=== PATIENT | female | born 1990 | race African-American/Black ===

== ENCOUNTER 2017-12-07 17:26 | Emergency (ER) | payer OTHER ==
[~2017-12-07] VITALS: Ht 157.5 cm; Wt 70.0 kg
[~2017-12-07 17:26] MED LIST: ALBUTEROL; CLARITIN
[2017-12-07] MEDS ORDERED: KETOROLAC 60MG/2ML VIAL IM STA (18:38)
[2017-12-07 19:10] LABS: CLARITY URINE CLOUDY (CLEAR); COLOR URINE YELLOW (YELLOW); KETONES URINE TRACE (NEGATIVE); LEUKOCYTE ESTERASE URINE NEGATIVE (NEGATIVE); NITRITE URINE NEGATIVE (NEGATIVE); OCCULT BLOOD URINE NEGATIVE (NEGATIVE); PH URINE 6.5 (4.5-8.0); PROTEIN URINE NEGATIVE (NEGATIVE); SPECIFIC GRAVITY URINE 1.028 (1.005-1.030); UROBILINOGEN URINE 0.2 E.U./dL (0.2-1.0)
[2017-12-07 19:45] LABS: BASOPHILS % 0.7 % (0.0-2.0); EOSINOPHILS % 0.9 % (0.0-5.0); HEMATOCRIT. 38.1 % (36.0-48.0); HEMOGLOBIN. 12.9 g/dL (12.0-16.0); LYMPHOCYTES % 31.4 % (20.0-50.0); MEAN CORPUSCULAR HEMOGLOBIN 29.5 pg (28.0-32.0); MEAN CORPUSCULAR VOLUME 87.1 fL (81.0-99.0); MEAN PLATELET VOLUME 8.1 fl (7.4-10.4); MONOCYTES % 5.7 % (2.0-8.0); NEUTROPHILS % 61.3 % (40.0-76.0); PLATELET 328 x1000/uL (130-400); RED BLOOD CELL COUNT 4.37 mill/uL (4.2-5.4); RED CELL DISTRIBUTION WIDTH 12.7 % (11.6-14.6)
[2017-12-07 19:51] LABS: CHLORIDE 107 mEq/L (98-107)
[2017-12-07 21:10] VITALS: BP 182/83
== END 2017-12-07 22:25 | disposition home or self-care (01) ==
LOC: ER 17:26
DX: R10.30 Lower abdominal pain, unspecified (principal); R03.0 Elevated blood-pressure reading, without diagnosis of hypertension; J45.909 Unspecified asthma, uncomplicated; Z87.442 Personal history of urinary calculi
CPT/HCPCS: 36415; 74176; 80053; 81003; 81025; 85025; 96372; 99285; J1885

== ENCOUNTER 2018-06-28 23:22 | Emergency (ER) | payer OTHER ==
[~2018-06-28] VITALS: Ht 157.5 cm; Wt 62.0 kg
== END 2018-06-29 03:30 | disposition left against medical advice (07) ==
LOC: ER 23:22
DX: R10.9 Unspecified abdominal pain (principal); Z53.21 Procedure and treatment not carried out due to patient leaving prior to being seen by health care provider

== ENCOUNTER 2019-01-12 16:47 | Inpatient (IN) | payer OTHER ==
[~2019-01-12] VITALS: Ht 157.5 cm; Wt 60.3 kg
[2019-01-12] MEDS ORDERED: ONDANSETRON HCL 4MG/2ML INJ IV STA (21:50)
[2019-01-12] MEDS ORDERED: MAGNESIUM/ALUMINUM HYDROXIDE/SIMETHICONE 30ML UDC PO ONE (22:00)
[2019-01-12] MEDS ORDERED: VISCOUS LIDOCAINE 2% 15 ML UDC PO ONE (22:00)
[2019-01-12] MEDS ORDERED: ASPIRIN 81MG TABLET PO ONE (22:00)
[2019-01-12 22:48] LABS: BASOPHILS % 0.6 % (0.0-2.0); EOSINOPHILS % 1.8 % (0.0-5.0); HEMOGLOBIN. 13.1 g/dL (12.0-16.0); LYMPHOCYTES % 28.7 % (20.0-50.0); MEAN CORPUSCULAR HEMOGLOBIN 29.1 pg (28.0-32.0); MEAN CORPUSCULAR VOLUME 86.5 fL (81.0-99.0); MEAN PLATELET VOLUME 8.1 fl (7.4-10.4); MONOCYTES % 5.9 % (2.0-8.0); PLATELET 315 x1000/uL (130-400); RED BLOOD CELL COUNT 4.51 mill/uL (4.2-5.4); RED CELL DISTRIBUTION WIDTH 13.1 % (11.6-14.6)
[2019-01-12 22:55] LABS: INR 1.1; PARTIAL THROMBOPLASTIN TIME 33.2 sec (23.4-31.0)
[2019-01-12 23:04] LABS: CHLORIDE 108 mEq/L (98-107)
[2019-01-13] MEDS ORDERED: NITROGLYCERIN 0.4MG TABLET SL SL ONE (00:30)
[2019-01-13] MEDS ORDERED: KETOROLAC 30MG/ML VIAL IV ONE (00:30)
[2019-01-13 08:20] VITALS: BP 107/67
[2019-01-13] MEDS: METOPROLOL TARTRATE 25MG TABLET PO SCH ×3 (09:30→21:00)
[2019-01-13] MEDS: ASPIRIN 325MG EC TABLET PO SCH (10:22)
[2019-01-13] MEDS: MORPHINE SULFATE 2 MG/ML CPJ (NOT FOR IM USE) IV PRN ×3 (10:30→21:39)
[2019-01-13 10:56] VITALS: BP 107/67
[2019-01-13] MEDS ORDERED: DIPHENHYDRAMINE 50MG/ML VIAL IV PRN (11:45)
[2019-01-13 12:00] VITALS: BP 106/67
[2019-01-13] MEDS ORDERED: ONDANSETRON HCL 4MG/2ML INJ IV PRN (14:15)
[2019-01-13] MEDS ORDERED: GUAIFENESIN 200MG/10ML SUGAR FREE UDC PO PRN (14:15)
[2019-01-13] MEDS ORDERED: MAGNESIUM/ALUMINUM HYDROXIDE/SIMETHICONE 30ML UDC PO PRN (14:15)
[2019-01-13] MEDS ORDERED: ACETAMINOPHEN 325MG TABLET PO PRN (14:15)
[2019-01-13] MEDS: NITROGLYCERIN OINT 1GM/INCH UDPKT TD SCH ×2 (14:38→22:00)
[2019-01-13] MEDS: ENOXAPARIN 40MG/0.4ML SYR SUBCUT SCH (14:38)
[2019-01-13] MEDS: PANTOPRAZOLE SODIUM 40 MG/VIAL IV SCH (14:41)
[2019-01-13 16:00] VITALS: BP 112/65
[2019-01-13] MEDS: IPRATROPIUM BROMIDE (0.02%) 0.5MG/2.5ML NEB HHN SCH ×2 (16:51→20:44)
[2019-01-13] MEDS ORDERED: MONTELUKAST SODIUM 10MG TABLET PO SCH (17:00)
[2019-01-13 20:09] LABS: *AMPHETAMINES SCREEN URINE NEGATIVE (NEGATIVE); *BARBITURATES SCREEN URINE NEGATIVE (NEGATIVE); *BENZODIAZEPINES SCREEN URINE NEGATIVE (NEGATIVE); METHADONE URINE SCREEN NEGATIVE (NEGATIVE)
[2019-01-13 20:10] LABS: *COCAINE SCREEN URINE PRESUMTIVE POSITIVE (NEGATIVE); CANNABINOID URINE SCREEN NEGATIVE (NEGATIVE); OPIATES URINE SCREEN PRESUMTIVE POSITIVE (NEGATIVE); PHENCYCLIDINE URINE SCREEN NEGATIVE (NEGATIVE)
[2019-01-14] MEDS: IPRATROPIUM BROMIDE (0.02%) 0.5MG/2.5ML NEB HHN SCH ×4 (04:00→12:33)
[2019-01-14] MEDS: NITROGLYCERIN OINT 1GM/INCH UDPKT TD SCH ×2 (06:00→14:00)
[2019-01-14 06:23] LABS: BASOPHILS % 0.6 % (0.0-2.0); EOSINOPHILS % 2.7 % (0.0-5.0); HEMATOCRIT. 34.3 % (36.0-48.0); HEMOGLOBIN. 11.7 g/dL (12.0-16.0); LYMPHOCYTES % 36.3 % (20.0-50.0); MEAN CORPUSCULAR HEMOGLOBIN 29.7 pg (28.0-32.0); MEAN CORPUSCULAR VOLUME 87.2 fL (81.0-99.0); MEAN PLATELET VOLUME 7.8 fl (7.4-10.4); MONOCYTES % 8.5 % (2.0-8.0); NEUTROPHILS % 51.9 % (40.0-76.0); PLATELET 261 x1000/uL (130-400); RED BLOOD CELL COUNT 3.94 mill/uL (4.2-5.4); RED CELL DISTRIBUTION WIDTH 13.2 % (11.6-14.6)
[2019-01-14 06:33] LABS: CHLORIDE 110 mEq/L (98-107)
[2019-01-14 06:47] LABS: LDL CHOLESTEROL 122 mg/dL (5-100)
[2019-01-14 06:48] LABS: PHOSPHORUS 4.5 mg/dL (2.5-4.9)
[2019-01-14 06:49] LABS: HDL CHOLESTEROL 43 mg/dL (40-59)
[2019-01-14 08:15] VITALS: BP 111/80
[2019-01-14] MEDS ORDERED: HYDROCODONE/ACETAMINOPHEN 5/325MG TABLET PO PRN (08:45)
[2019-01-14] MEDS: METOPROLOL TARTRATE 25MG TABLET PO SCH (09:00)
[2019-01-14] MEDS: ASPIRIN 325MG EC TABLET PO SCH (09:04)
[2019-01-14] MEDS: PANTOPRAZOLE SODIUM 40 MG/VIAL IV SCH (09:07)
[2019-01-14 12:15] VITALS: BP 105/69
[2019-01-14] MEDS: MORPHINE SULFATE 2 MG/ML CPJ (NOT FOR IM USE) IV PRN (13:55)
[2019-01-14] MEDS: ENOXAPARIN 40MG/0.4ML SYR SUBCUT SCH (15:00)
[2019-01-14 15:45] VITALS: BP 105/69
[2019-01-15] MEDS ORDERED: FAMOTIDINE 20MG TABLET PO SCH (09:00)
== END 2019-01-14 16:37 | disposition home or self-care (01) | DRG 201 ==
LOC: ER 16:47 → ENRESERV 01-13 07:38 → 6WST 01-13 08:13
PROVIDERS: ADMIT Internal Medicine; ATTEND Internal Medicine
DX: I48.91 Unspecified atrial fibrillation (principal); E87.8 Other disorders of electrolyte and fluid balance, not elsewhere classified; E87.6 Hypokalemia; J45.909 Unspecified asthma, uncomplicated; Z79.899 Other long term (current) drug therapy
CPT/HCPCS: 36415; 71045; 80048; 80061; 80305; 81025; 83735; 83880; 84100; 84443; 84484; 93005; 93306; 93970; 96374; 96375; 99285; C9113; J1200; J1650; J1885; J2270; J2405

== ENCOUNTER 2023-06-23 16:56 | Emergency (ER) | payer MEDICAID, OTHER ==
[~2023-06-23] VITALS: Ht 157.5 cm; Wt 68.0 kg
[2023-06-23 17:10] VITALS: TEMP 97.2; O2SAT 99
[2023-06-23] MEDS ORDERED: KETOROLAC 60MG/2ML VIAL IM ONE (19:30)
[2023-06-23] MEDS ORDERED: NAPR-679 MT (21:04)
[2023-06-23 21:15] VITALS: BP 154/103; PULSE 94; RESP 18
[2023-06-23] MEDS: KETOROLAC 30MG/ML VIAL IM NR (21:15)
== END 2023-06-23 21:49 | disposition home or self-care (01) ==
LOC: ER 16:56
DX: S62.306A Unspecified fracture of fifth metacarpal bone, right hand, initial encounter for closed fracture (principal); J45.909 Unspecified asthma, uncomplicated; W10.8XXA Fall (on) (from) other stairs and steps, initial encounter; Y93.89 Activity, other specified; Y92.89 Other specified places as the place of occurrence of the external cause; Y99.8 Other external cause status
CPT/HCPCS: 99284; 73080; 73130; 29125; J1885